=== PATIENT | female | born 1945 | race Caucasian/White ===

== ENCOUNTER → 2021-09-04 | Outpatient (CLI) | payer MEDICARE, OTHER ==
[~2021-09-04] VITALS: Ht 152.4 cm; Wt 35.8 kg
[~2021-09-04] MED LIST: IRON SUCROSE COMPLEX 500 MG in IV NORMAL SALINE 250ML 250 ML IV ONE
[2021-09-04 11:38] VITALS: BP 118/71
== END | disposition home or self-care (01) ==
LOC: OPS 11:16
PROVIDERS: ATTEND Specialist
DX: D64.9 Anemia, unspecified (principal); I50.84 End stage heart failure; J44.9 Chronic obstructive pulmonary disease, unspecified; Z99.81 Dependence on supplemental oxygen
CPT/HCPCS: 96365; 96366; J1756; J7050; J7030